=== PATIENT | female | born 1995 | race Caucasian/White ===

== ENCOUNTER → 2021-04-21 15:52 | Outpatient (CLI) | payer BC, SELFPAY ==
--- NOTE | ~2021-04-21 | US_ITS ---
US OB /maternal detail DATE: 04/21/2021 16:35 INDICATION: anatomy screen TECHNIQUE: Real-time imaging via transabdominal approach. Doppler analysis. COMPARISON: None FINDINGS: Live centimeters Station, fetus in vertex presentation. Placenta is fundal, with lower colin in 4.2 cm above the internal os. Subjectively normal amount of amniotic fluid. heart rate is 158 bpm. cerebral ventricles, choroid plexus, cisterna magna and cerebellum and nuchal fold are normal. upper lip, spine normal. Four-chamber heart. The right ventricular outflow tracts appear normal. diaphragm is intact. Fluid is noted in the stomach and urinary bladder. kid neys are unremarkable without hydronephrosis. Three-vessel umbilical cord with normal insertion at abdominal wall. extremities are demo nstrated. Biparietal diameter 4.57 cm; 19 weeks 16 days estimated gestational age Head circumference 17.44 cm; 20 weeks Abdominal circumference 13.98 cm; 19 weeks 3 days Femur length 2.97 cm; 19 weeks 1 day Composite age by Hadlock formula is 19 weeks 4 days +/- 1 week 3 days, with JUAQUIN of 09/11/2021, compare d to 09/13/2021 by LMP. Estimated weight is 287.8 +/- 43.2 g Estimated weight-GP: 49.4% Head circumference/abdominal director of business development was 1.25, within normal range of 1.08, 101.26 Femur length/head circumference 17.01, within normal range of 16.50-19.16. IMPRESSION: Estimated gestational age is 19 weeks 4 days +/- 1 week 3 days; JUAQUIN: 09/11/2021 Reviewed, dictated and finalized at [facility]. Reviewed, dictated and finalized at [facility]. R CUSTODIAN IMPRESSION: Estimated gestational age is 19 weeks 4 days +/- 1 week 3 days; JUAQUIN : 09/11/2021
== END ==
PROVIDERS: Visit Provider Obstetrics & Gynecology
DX: Z36.9 Encounter for antenatal screening, unspecified (principal); Z3A.19 19 weeks gestation of pregnancy
CPT/HCPCS: 76805